=== PATIENT | female | born 1980 | race Caucasian/White ===

== ENCOUNTER 2016-07-17 10:22 | Inpatient (IN) | payer OTHER, MEDICAID ==
[~2016-07-17] VITALS: Ht 147.3 cm; Wt 56.2 kg
[~2016-07-17 10:22] MED LIST: DIPH25 PO; DIVA250T25 PO; LURA40 PO
[2016-07-17 10:42] LABS: BASOPHILS # (AUTO) 0.11 K/uL (0.00-0.20); EOSINOPHILS # (AUTO) 0.07 K/uL (0.00-0.70); EOSINOPHILS % (AUTO) 0.68 % (1.0-6.0); HEMATOCRIT 43.1 % (36-46); HEMOGLOBIN 14.2 g/dL (12.0-16.0); LYMPHOCYTES # (AUTO) 3.6 K/uL (1.0-4.8); MEAN CORPUSCULAR HEMOGLOBIN 29.1 pg (26.0-34.0); MEAN CORPUSCULAR VOLUME 88 fL (80-100); NEUTROPHILS # (AUTO) 5.9 K/uL (1.8-7.7); NEUTROPHILS % (AUTO) 55.4 % (40.0-70.0); PLATELET COUNT (AUTO) 388 K/uL (150-450); RED BLOOD CELL COUNT(AUTO) 4.88 MIL/uL (4.00-5.20); RED CELL DISTRIBUTION WIDTH 14.4 % (11.5-14.5); WHITE BLOOD COUNT (AUTO) 10.7 K/uL (4.5-11.0)
[2016-07-17 10:52] LABS: ANION GAP 7 mmol/L (8-16); CALCIUM, TOTAL 9.1 mg/dL (8.8-10.5); CARBON DIOXIDE 28 mmol/L (22-29); CHLORIDE 103 mmol/L (98-107); CREATININE 0.94 mg/dL (0.60-1.30); GLOMERULAR FILTR. RATE CALC > 60 mL/min (>60); POTASSIUM 3.8 mmol/L (3.5-5.1); SODIUM SERUM 138 mmol/L (136-145); UREA NITROGEN, BLOOD 18 mg/dL (7-18)
[2016-07-17 10:58] LABS: ALANINE AMINOTRANSFERASE 19 U/L (12-78); ALBUMIN 4.2 g/dL (3.4-5.0); ASPARTATE AMINOTRANSFERASE 16 U/L (15-37); BILIRUBIN,TOTAL 0.4 mg/dL (0.1-1.0); TOTAL PROTEIN, SERUM 7.8 g/dL (6.4-8.2)
[2016-07-17 10:59] LABS: VALPROIC ACID < 3 mcg/mL (50-100)
[2016-07-17 11:00] LABS: ACETAMINOPHEN < 2 mcg/mL (10-30)
[2016-07-17 11:06] LABS: SALICYLATE 4.6 mg/dL (2.8-20.0)
[2016-07-17] MEDS ORDERED: ZOLPIDEM TARTRATE 10 MG TABLET PO PRN (13:00)
[2016-07-17] MEDS ORDERED: HALOPERIDOL 5 MG TABLET PO PRN (13:00)
[2016-07-17] MEDS ORDERED: LORazepam 2 MG TABLET PO PRN (13:00)
[2016-07-17] MEDS ORDERED: INFLUENZA VIRUS VACCINE QVS 2016-17 (3YR+)/PF 60 MCG/0.5 ML SYRINGE IM ONE (14:15)
[2016-07-17 14:26] VITALS: BP 100/75
[2016-07-17] MEDS ORDERED: LOPERAMIDE HCL 2 MG CAPSULE PO PRN (15:30)
[2016-07-17] MEDS ORDERED: MAG HYDROX/AL HYDROX/SIMETH ES 30 ML SUSPENSION UDCUP PO PRN (15:30)
[2016-07-17] MEDS ORDERED: ACETAMINOPHEN 325 MG TABLET PO PRN (15:30)
[2016-07-17] MEDS ORDERED: PETROLATUM,WHITE 71 GM JELLY TP PRN (15:30)
[2016-07-17] MEDS ORDERED: BACITRACIN 28.4 GM OINTMENT TP PRN (15:30)
[2016-07-17] MEDS ORDERED: ONDANSETRON HCL 4 MG TABLET PO PRN (15:30)
[2016-07-17] MEDS ORDERED: ALBUTEROL SULFATE HFA 90 MCG/PUFF 8 GM INHALER IH PRN (15:30)
[2016-07-17] MEDS ORDERED: MAGNESIUM HYDROXIDE SUSPENSION 30 ML UDCUP PO PRN (15:30)
[2016-07-17] MEDS ORDERED: BENZOCAINE/MENTHOL LOZENGE MM PRN (15:30)
[2016-07-17] MEDS ORDERED: IBUPROFEN 600 MG TABLET PO PRN (15:30)
[2016-07-17] MEDS ORDERED: CloNIDine HCL 0.1 MG TABLET PO PRN (15:30)
[2016-07-17] MEDS: DIVALPROEX SODIUM 500 MG DR TABLET PO SCH (16:14)
[2016-07-17] MEDS: DiphenhydrAMINE HCL 25 MG CAPSULE PO SCH (20:27)
[2016-07-17] MEDS: OLANZapine 7.5 MG TABLET PO SCH (20:27)
[2016-07-17 21:37] VITALS: BP 100/68
[2016-07-18] MEDS: DIVALPROEX SODIUM 500 MG DR TABLET PO SCH ×2 (08:05→16:08)
[2016-07-18 16:34] VITALS: BP 110/76
[2016-07-18] MEDS: DiphenhydrAMINE HCL 25 MG CAPSULE PO SCH (20:30)
[2016-07-18] MEDS: OLANZapine 7.5 MG TABLET PO SCH (20:31)
[2016-07-19 08:00] VITALS: BP 96/71
[2016-07-19] MEDS: DIVALPROEX SODIUM 500 MG DR TABLET PO SCH ×2 (08:42→16:23)
[2016-07-19 16:55] VITALS: BP 96/71
[2016-07-19] MEDS: OLANZapine 7.5 MG TABLET PO SCH (20:12)
[2016-07-19] MEDS: DiphenhydrAMINE HCL 25 MG CAPSULE PO SCH (20:12)
[2016-07-20 08:30] VITALS: BP 95/47
[2016-07-20] MEDS: DIVALPROEX SODIUM 500 MG DR TABLET PO SCH ×2 (09:26→16:04)
[2016-07-20 11:24] VITALS: BP 96/55
[2016-07-20 16:51] VITALS: BP 113/70
[2016-07-20] MEDS: NICOTINE 21 MG/24 HOUR PATCH TD SCH (18:30)
[2016-07-20] MEDS: DiphenhydrAMINE HCL 25 MG CAPSULE PO SCH (20:33)
[2016-07-20] MEDS: OLANZapine 7.5 MG TABLET PO SCH (20:33)
[2016-07-21 08:30] VITALS: BP 120/78
[2016-07-21] MEDS: DIVALPROEX SODIUM 500 MG DR TABLET PO SCH ×2 (08:41→16:04)
[2016-07-21] MEDS: NICOTINE 21 MG/24 HOUR PATCH TD SCH (11:14)
[2016-07-21 19:21] VITALS: BP 101/58
[2016-07-21] MEDS: DiphenhydrAMINE HCL 25 MG CAPSULE PO SCH (20:28)
[2016-07-21] MEDS: OLANZapine 7.5 MG TABLET PO SCH (20:29)
[2016-07-22 08:17] VITALS: BP 115/75
[2016-07-22] MEDS: DIVALPROEX SODIUM 500 MG DR TABLET PO SCH ×2 (09:31→16:51)
[2016-07-22] MEDS: NICOTINE 21 MG/24 HOUR PATCH TD SCH (09:33)
[2016-07-22 16:00] VITALS: BP 107/70
[2016-07-22] MEDS: OLANZapine 7.5 MG TABLET PO SCH (21:11)
[2016-07-22] MEDS: DiphenhydrAMINE HCL 25 MG CAPSULE PO SCH (21:12)
[2016-07-23] MEDS: DIVALPROEX SODIUM 500 MG DR TABLET PO SCH ×2 (08:06→16:46)
[2016-07-23] MEDS: NICOTINE 21 MG/24 HOUR PATCH TD SCH (08:06)
[2016-07-23 08:59] VITALS: BP 107/72
[2016-07-23 18:15] VITALS: BP 109/74
[2016-07-23] MEDS: DiphenhydrAMINE HCL 25 MG CAPSULE PO SCH (20:36)
[2016-07-23] MEDS: OLANZapine 7.5 MG TABLET PO SCH (20:36)
[2016-07-24] MEDS: NICOTINE 21 MG/24 HOUR PATCH TD SCH (08:01)
[2016-07-24] MEDS: DIVALPROEX SODIUM 500 MG DR TABLET PO SCH ×2 (08:01→15:58)
[2016-07-24 08:52] VITALS: BP 105/62
[2016-07-24 17:00] VITALS: BP 112/76
[2016-07-24] MEDS: DiphenhydrAMINE HCL 25 MG CAPSULE PO SCH (20:28)
[2016-07-24] MEDS: OLANZapine 7.5 MG TABLET PO SCH (20:28)
[2016-07-25] MEDS: DIVALPROEX SODIUM 500 MG DR TABLET PO SCH ×2 (09:03→15:53)
[2016-07-25 09:43] VITALS: BP 109/61
[2016-07-25] MEDS: NICOTINE 21 MG/24 HOUR PATCH TD SCH (10:07)
[2016-07-25 16:46] VITALS: BP 118/74
[2016-07-25] MEDS: OLANZapine 7.5 MG TABLET PO SCH (20:14)
[2016-07-25] MEDS: DiphenhydrAMINE HCL 25 MG CAPSULE PO SCH (20:14)
[2016-07-26 08:30] VITALS: BP 109/57
[2016-07-26] MEDS: NICOTINE 21 MG/24 HOUR PATCH TD SCH (09:00)
[2016-07-26] MEDS: DIVALPROEX SODIUM 500 MG DR TABLET PO SCH ×2 (09:36→16:11)
[2016-07-26 16:59] VITALS: BP 98/67
[2016-07-26] MEDS: DiphenhydrAMINE HCL 25 MG CAPSULE PO SCH (20:31)
[2016-07-26] MEDS: OLANZapine 7.5 MG TABLET PO SCH (20:32)
[2016-07-27 08:00] VITALS: BP 94/65
[2016-07-27] MEDS: DIVALPROEX SODIUM 500 MG DR TABLET PO SCH ×2 (08:41→16:21)
[2016-07-27] MEDS: NICOTINE 21 MG/24 HOUR PATCH TD SCH (08:42)
[2016-07-27 16:55] VITALS: BP 112/73
[2016-07-27] MEDS: OLANZapine 7.5 MG TABLET PO SCH (20:06)
[2016-07-27] MEDS: DiphenhydrAMINE HCL 25 MG CAPSULE PO SCH (20:06)
[2016-07-27] MEDS: PALIPERIDONE 3 MG ER TABLET PO SCH (20:06)
[2016-07-28] MEDS: DIVALPROEX SODIUM 500 MG DR TABLET PO SCH ×2 (08:13→16:45)
[2016-07-28] MEDS: NICOTINE 21 MG/24 HOUR PATCH TD SCH (08:14)
[2016-07-28 09:24] VITALS: BP 90/56
[2016-07-28 16:42] VITALS: BP 120/62
[2016-07-28] MEDS: DiphenhydrAMINE HCL 25 MG CAPSULE PO SCH (20:26)
[2016-07-28] MEDS: OLANZapine 7.5 MG TABLET PO SCH (20:26)
[2016-07-28] MEDS: PALIPERIDONE 3 MG ER TABLET PO SCH (20:26)
[2016-07-29 08:00] VITALS: BP 113/73
[2016-07-29] MEDS: DIVALPROEX SODIUM 500 MG DR TABLET PO SCH ×2 (08:49→16:26)
[2016-07-29] MEDS: NICOTINE 21 MG/24 HOUR PATCH TD SCH (08:50)
[2016-07-29] MEDS ORDERED: PALIPERIDONE PALMITATE 234 MG/1.5 ML SYRINGE IM ONE (16:00)
[2016-07-29 16:05] VITALS: BP 105/78
[2016-07-29] MEDS: OLANZapine 7.5 MG TABLET PO SCH (20:27)
[2016-07-29] MEDS: DiphenhydrAMINE HCL 25 MG CAPSULE PO SCH (20:27)
[2016-07-30] MEDS: NICOTINE 21 MG/24 HOUR PATCH TD SCH (08:13)
[2016-07-30] MEDS: DIVALPROEX SODIUM 500 MG DR TABLET PO SCH ×2 (08:13→16:08)
[2016-07-30 09:43] VITALS: BP 144/60
[2016-07-30 16:59] VITALS: BP 104/61
[2016-07-30] MEDS: OLANZapine 7.5 MG TABLET PO SCH (20:05)
[2016-07-30] MEDS: DiphenhydrAMINE HCL 25 MG CAPSULE PO SCH (20:05)
[2016-07-31] MEDS: NICOTINE 21 MG/24 HOUR PATCH TD SCH (10:03)
[2016-07-31] MEDS: DIVALPROEX SODIUM 500 MG DR TABLET PO SCH ×2 (10:04→16:16)
[2016-07-31 10:37] VITALS: BP 95/72
[2016-07-31 16:18] VITALS: BP 100/66
[2016-07-31] MEDS: DiphenhydrAMINE HCL 25 MG CAPSULE PO SCH (20:34)
[2016-07-31] MEDS: OLANZapine 7.5 MG TABLET PO SCH (20:34)
[2016-08-01] MEDS: NICOTINE 21 MG/24 HOUR PATCH TD SCH (08:49)
[2016-08-01] MEDS: DIVALPROEX SODIUM 500 MG DR TABLET PO SCH ×2 (08:49→16:32)
[2016-08-01 09:17] VITALS: BP 90/60
[2016-08-01 16:15] VITALS: BP 165/78
[2016-08-01] MEDS: OLANZapine 7.5 MG TABLET PO SCH (20:50)
[2016-08-01] MEDS: DiphenhydrAMINE HCL 25 MG CAPSULE PO SCH (20:50)
[2016-08-02 08:49] VITALS: BP 100/63
[2016-08-02] MEDS: NICOTINE 21 MG/24 HOUR PATCH TD SCH (09:14)
[2016-08-02] MEDS: DIVALPROEX SODIUM 500 MG DR TABLET PO SCH ×2 (09:15→16:30)
[2016-08-02 18:31] VITALS: BP 111/77
[2016-08-02] MEDS: DiphenhydrAMINE HCL 25 MG CAPSULE PO SCH (20:14)
[2016-08-02] MEDS: OLANZapine 7.5 MG TABLET PO SCH (20:14)
[2016-08-03 08:30] VITALS: BP 103/72
[2016-08-03] MEDS: DIVALPROEX SODIUM 500 MG DR TABLET PO SCH ×2 (08:51→16:47)
[2016-08-03] MEDS: NICOTINE 21 MG/24 HOUR PATCH TD SCH (08:51)
[2016-08-03 17:10] VITALS: BP 106/70
[2016-08-03] MEDS: OLANZapine 7.5 MG TABLET PO SCH (20:17)
[2016-08-03] MEDS: DiphenhydrAMINE HCL 25 MG CAPSULE PO SCH (20:17)
[2016-08-04 08:00] VITALS: BP 105/70
[2016-08-04] MEDS: NICOTINE 21 MG/24 HOUR PATCH TD SCH (09:32)
[2016-08-04] MEDS: DIVALPROEX SODIUM 500 MG DR TABLET PO SCH ×2 (09:33→17:08)
[2016-08-04 19:18] VITALS: BP 115/70
[2016-08-04] MEDS: DiphenhydrAMINE HCL 25 MG CAPSULE PO SCH (20:19)
[2016-08-04] MEDS: OLANZapine 7.5 MG TABLET PO SCH (20:20)
[2016-08-05 08:00] VITALS: BP 122/74
[2016-08-05] MEDS: DIVALPROEX SODIUM 500 MG DR TABLET PO SCH ×2 (08:47→16:33)
[2016-08-05] MEDS: NICOTINE 21 MG/24 HOUR PATCH TD SCH (08:48)
[2016-08-05] MEDS: OLANZapine 7.5 MG TABLET PO SCH (20:40)
[2016-08-05] MEDS: DiphenhydrAMINE HCL 25 MG CAPSULE PO SCH (20:40)
[2016-08-05 21:56] VITALS: BP 133/69
[2016-08-06 08:15] VITALS: BP 90/60
[2016-08-06] MEDS: NICOTINE 21 MG/24 HOUR PATCH TD SCH (08:31)
[2016-08-06] MEDS: DIVALPROEX SODIUM 500 MG DR TABLET PO SCH ×2 (08:32→16:46)
[2016-08-06 17:22] VITALS: BP 106/68
[2016-08-06] MEDS: DiphenhydrAMINE HCL 25 MG CAPSULE PO SCH (20:00)
[2016-08-06] MEDS: OLANZapine 7.5 MG TABLET PO SCH (20:00)
[2016-08-07] MEDS: DIVALPROEX SODIUM 500 MG DR TABLET PO SCH ×2 (08:25→16:40)
[2016-08-07] MEDS: NICOTINE 21 MG/24 HOUR PATCH TD SCH (13:32)
[2016-08-07 16:23] VITALS: BP 95/60
[2016-08-07] MEDS: OLANZapine 7.5 MG TABLET PO SCH (20:16)
[2016-08-07] MEDS: DiphenhydrAMINE HCL 25 MG CAPSULE PO SCH (20:16)
[2016-08-08 08:15] VITALS: BP 111/66
[2016-08-08] MEDS: DIVALPROEX SODIUM 500 MG DR TABLET PO SCH ×2 (09:51→19:06)
[2016-08-08] MEDS: NICOTINE 21 MG/24 HOUR PATCH TD SCH (09:52)
[2016-08-08 16:23] VITALS: BP 109/66
[2016-08-08] MEDS: OLANZapine 7.5 MG TABLET PO SCH (20:37)
[2016-08-08] MEDS: DiphenhydrAMINE HCL 25 MG CAPSULE PO SCH (20:37)
[2016-08-09 08:33] VITALS: BP 90/60
[2016-08-09] MEDS: DIVALPROEX SODIUM 500 MG DR TABLET PO SCH ×2 (09:31→16:09)
[2016-08-09] MEDS: NICOTINE 21 MG/24 HOUR PATCH TD SCH (09:31)
[2016-08-09 16:33] VITALS: BP 97/60
[2016-08-09] MEDS: DiphenhydrAMINE HCL 25 MG CAPSULE PO SCH (20:18)
[2016-08-09] MEDS: OLANZapine 7.5 MG TABLET PO SCH (20:18)
[2016-08-10 08:01] VITALS: BP 111/60
[2016-08-10] MEDS: DIVALPROEX SODIUM 500 MG DR TABLET PO SCH ×2 (08:28→16:52)
[2016-08-10] MEDS: NICOTINE 21 MG/24 HOUR PATCH TD SCH (08:29)
[2016-08-10 17:42] VITALS: BP 98/70
[2016-08-10] MEDS: OLANZapine 7.5 MG TABLET PO SCH (20:47)
[2016-08-10] MEDS: DiphenhydrAMINE HCL 25 MG CAPSULE PO SCH (20:48)
[2016-08-11 08:16] VITALS: BP 99/68
[2016-08-11] MEDS: DIVALPROEX SODIUM 500 MG DR TABLET PO SCH ×2 (08:52→16:37)
[2016-08-11] MEDS: NICOTINE 21 MG/24 HOUR PATCH TD SCH (08:58)
[2016-08-11 16:42] VITALS: BP 119/67
[2016-08-11] MEDS: DiphenhydrAMINE HCL 25 MG CAPSULE PO SCH (20:35)
[2016-08-11] MEDS: OLANZapine 7.5 MG TABLET PO SCH (20:35)
[2016-08-12 08:00] VITALS: BP 90/69
[2016-08-12] MEDS: NICOTINE 21 MG/24 HOUR PATCH TD SCH (08:10)
[2016-08-12] MEDS: DIVALPROEX SODIUM 500 MG DR TABLET PO SCH ×2 (08:10→16:28)
[2016-08-12 17:00] VITALS: BP 98/61
[2016-08-12] MEDS: DiphenhydrAMINE HCL 25 MG CAPSULE PO SCH (20:34)
[2016-08-12] MEDS: OLANZapine 7.5 MG TABLET PO SCH (20:34)
[2016-08-13 08:15] VITALS: BP 93/61
[2016-08-13] MEDS: DIVALPROEX SODIUM 500 MG DR TABLET PO SCH ×2 (08:24→17:13)
[2016-08-13] MEDS: NICOTINE 21 MG/24 HOUR PATCH TD SCH (08:30)
[2016-08-13 17:09] VITALS: BP 100/62
[2016-08-13] MEDS: OLANZapine 7.5 MG TABLET PO SCH (20:25)
[2016-08-13] MEDS: DiphenhydrAMINE HCL 25 MG CAPSULE PO SCH (20:25)
[2016-08-14] MEDS: DIVALPROEX SODIUM 500 MG DR TABLET PO SCH ×2 (08:18→16:46)
[2016-08-14] MEDS: NICOTINE 21 MG/24 HOUR PATCH TD SCH (08:22)
[2016-08-14 08:41] VITALS: BP_SYST 58
[2016-08-14 18:15] VITALS: BP 96/56
[2016-08-14] MEDS: DiphenhydrAMINE HCL 25 MG CAPSULE PO SCH (20:07)
[2016-08-14] MEDS: OLANZapine 7.5 MG TABLET PO SCH (20:07)
[2016-08-15] MEDS: DIVALPROEX SODIUM 500 MG DR TABLET PO SCH ×2 (08:14→17:06)
[2016-08-15] MEDS: NICOTINE 21 MG/24 HOUR PATCH TD SCH (08:17)
[2016-08-15 12:19] VITALS: BP 91/64
[2016-08-15 16:58] VITALS: BP 110/65
[2016-08-15] MEDS: DiphenhydrAMINE HCL 25 MG CAPSULE PO SCH (20:30)
[2016-08-15] MEDS: OLANZapine 7.5 MG TABLET PO SCH (20:30)
[2016-08-16] MEDS: DIVALPROEX SODIUM 500 MG DR TABLET PO SCH ×2 (07:53→16:48)
[2016-08-16] MEDS: NICOTINE 21 MG/24 HOUR PATCH TD SCH (07:56)
[2016-08-16 08:05] VITALS: BP 90/60
[2016-08-16 16:06] VITALS: BP 97/66
[2016-08-16] MEDS: OLANZapine 7.5 MG TABLET PO SCH (21:00)
[2016-08-16] MEDS: DiphenhydrAMINE HCL 25 MG CAPSULE PO SCH (21:00)
[2016-08-16 21:30] VITALS: BP 95/60
[2016-08-17 08:05] VITALS: BP 105/75
[2016-08-17] MEDS: DIVALPROEX SODIUM 500 MG DR TABLET PO SCH ×2 (08:25→19:30)
[2016-08-17] MEDS: NICOTINE 21 MG/24 HOUR PATCH TD SCH (08:26)
[2016-08-17 17:10] VITALS: BP 101/63
[2016-08-17 20:47] VITALS: BP 104/61
[2016-08-17] MEDS: DiphenhydrAMINE HCL 25 MG CAPSULE PO SCH (21:55)
[2016-08-17] MEDS: OLANZapine 7.5 MG TABLET PO SCH (21:55)
[2016-08-18] MEDS: DIVALPROEX SODIUM 500 MG DR TABLET PO SCH ×2 (08:05→16:39)
[2016-08-18] MEDS: NICOTINE 21 MG/24 HOUR PATCH TD SCH (08:05)
[2016-08-18 08:34] VITALS: BP 115/72
[2016-08-18 16:31] VITALS: BP 99/65
[2016-08-18] MEDS: DiphenhydrAMINE HCL 25 MG CAPSULE PO SCH (20:05)
[2016-08-18] MEDS: OLANZapine 7.5 MG TABLET PO SCH (20:05)
[2016-08-19 06:50] LABS: BASOPHILS # (AUTO) 0.06 K/uL (0.00-0.20); BASOPHILS % (AUTO) 0.8 % (0.0-2.0); HEMATOCRIT 34.3 % (36-46); HEMOGLOBIN 11.2 g/dL (12.0-16.0); LYMPHOCYTES # (AUTO) 3.1 K/uL (1.0-4.8); LYMPHOCYTES % (AUTO) 39.4 % (22.0-44.0); MEAN CORPUSCULAR HEMOGLOBIN 30.1 pg (26.0-34.0); MEAN CORPUSCULAR HGB CONC 32.8 G/dL (31.0-37.0); MEAN CORPUSCULAR VOLUME 92 fL (80-100); MONOCYTES # (AUTO) 0.8 K/uL (0.1-1.0); MONOCYTES % (AUTO) 9.8 % (2.0-9.0); NEUTROPHILS # (AUTO) 3.4 K/uL (1.8-7.7); NEUTROPHILS % (AUTO) 43.7 % (40.0-70.0); PLATELET COUNT (AUTO) 191 K/uL (150-450); RED BLOOD CELL COUNT(AUTO) 3.74 MIL/uL (4.00-5.20); RED CELL DISTRIBUTION WIDTH 15.8 % (11.5-14.5); WHITE BLOOD COUNT (AUTO) 7.9 K/uL (4.5-11.0)
[2016-08-19 06:54] LABS: ANION GAP 9 mmol/L (8-16); CALCIUM, TOTAL 7.8 mg/dL (8.8-10.5); CARBON DIOXIDE 26 mmol/L (22-29); CHLORIDE 108 mmol/L (98-107); CREATININE 0.64 mg/dL (0.60-1.30); GLOMERULAR FILTR. RATE CALC > 60 mL/min (>60); PHOSPHORUS 4.3 mg/dL (2.5-4.9); POTASSIUM 4.3 mmol/L (3.5-5.1); SODIUM SERUM 143 mmol/L (136-145); UREA NITROGEN, BLOOD 22 mg/dL (7-18)
[2016-08-19 08:00] VITALS: BP 93/68
[2016-08-19] MEDS: NICOTINE 21 MG/24 HOUR PATCH TD SCH (09:28)
[2016-08-19] MEDS: DIVALPROEX SODIUM 500 MG DR TABLET PO SCH (09:28)
[2016-08-19] MEDS ORDERED: OLAN7.5T2 PO (12:04)
== END 2016-08-19 14:00 | disposition home or self-care (01) | DRG 885 ==
LOC: EMS 10:23 → 3EX 13:31 → EMS 13:51 → 3EX 08-02 09:45
PROVIDERS: ADMIT Psychiatry & Neurology Psychiatry; ATTEND Psychiatry & Neurology Psychiatry
PROC: 3E0234Z Introduction of Serum, Toxoid and Vaccine into Muscle, Percutaneous Approach (ICD-10-PCS; principal; 2016-07-17)
DX: F25.9 Schizoaffective disorder, unspecified (principal); F23 Brief psychotic disorder; F12.90 Cannabis use, unspecified, uncomplicated; K59.00 Constipation, unspecified; R53.83 Other fatigue; N94.6 Dysmenorrhea, unspecified; R56.9 Unspecified convulsions; F17.210 Nicotine dependence, cigarettes, uncomplicated; Z71.6 Tobacco abuse counseling; Z71.51 Drug abuse counseling and surveillance of drug abuser; Z28.21 Immunization not carried out because of patient refusal; Z79.899 Other long term (current) drug therapy; Z88.8 Allergy status to other drugs, medicaments and biological substances
CPT/HCPCS: 83735; 84100; 87081; 99285; G0480; G0481; J3535